=== PATIENT | female | born 1955 | race Caucasian/White ===

== ENCOUNTER 2019-12-11 00:58 | Emergency (ER) | payer BC, MEDICAID ==
[~2019-12-11] VITALS: Ht 152.4 cm; Wt 81.2 kg
[~2019-12-11 00:58] MED LIST: ALENDRONATE SODI5 MG PO; BENAZEPRIL HYDR40 M1 PO; ELIQUIS5 MG PO; FENOFIBRATE40 MG PO; GELNIQUE100 MG/GM TOP; LEVOTHYROXIN0.025 M2 PO; LIPI20 PO; METFORMIN HYDR500 M1 PO; METOPROLOL TART25 M1 PO; NATURE'S BLEND500 M3 PO; RANITIDINE15 MG/M1 PO; SIMVASTATIN10 M1 PO; SYNTHROID0.05 MG PO; TRAMADOL HCL50 MG PO
[2019-12-11 01:43] LABS: CALCIUM 9.3 mg/dL (8.5-10.1); CARBON DIOXIDE 25.5 mmol/L (21-32); CHLORIDE SERUM 109 mmol/L (98-107); CREATININE SERUM 0.7 mg/dL (0.6-1.0); GFR1 > 60 mL/min; GLUCOSE SERUM 129 mg/dL (74-106); POTASSIUM SERUM 3.4 mmol/L (3.5-5.1); SODIUM SERUM 146 mmol/L (136-145)
[2019-12-11 01:48] LABS: ALBUMIN 3.9 g/dL (3.4-5.0); ALKALINE PHOSPHATASE 104 U/L (46-116); ALT/SGPT 24 U/L (14-59); AST/SGOT 20 U/L (15-37); BILIRUBIN TOTAL 0.26 mg/dL (0.20-1.00)
[2019-12-11 01:49] LABS: TOTAL PROTEIN, SERUM 8.3 g/dL (6.4-8.2)
[2019-12-11 02:06] LABS: BASOPHIL % 0.6 % (0-2); PLATELET COUNT 180 x10^3mcL (130-400); RED CELL DISTRIBUTION WIDTH 14.1 % (11.5-14.5)
[2019-12-11 02:16] VITALS: BP 149/92
== END 2019-12-11 02:15 | disposition short-term general hospital (02) ==
LOC: ED 00:58
PROVIDERS: Emergency Medicine
DX: I21.9 Acute myocardial infarction, unspecified (principal); I48.91 Unspecified atrial fibrillation; I10 Essential (primary) hypertension; E11.9 Type 2 diabetes mellitus without complications
CPT/HCPCS: 83880; J1644; J2270; J2405; J3490; Q0092